=== PATIENT | female | born 1980 | race Caucasian/White ===

== ENCOUNTER 2017-02-27 13:42 | Emergency (ER) | payer OTHER ==
[2017-02-27 15:18] LABS: ALT (SGPT) 16 U/L (8-55); AST (SGOT) 24 U/L (5-34); Alkaline Phosphatase 35 U/L (40-150); Anion Gap 12 mmol/L (10-20); BUN (Urea Nitrogen) 12 mg/dL (7.0-18.7); Bilirubin, Total 0.6 mg/dL (0.2-1.2); Calc. Creatinine Clearance 0 mL/min (70-130); Carbon Dioxide 28 mmol/L (22-29); Chloride 102 mmol/L (98-107); Estimated GFR-MDRD 87; Globulin 3.5 g/dL (2.4-3.5); Lipase 29 U/L (8-78); Protein, Total 7.5 g/dL (6.0-8.3)
[2017-02-27] MEDS ORDERED: Fentanyl 100 MCG/2 ML VIAL ONE (15:28)
[2017-02-27 15:43] LABS: Bilirubin Negative (Negative); Blood, Urine Negative (Negative); Glucose, Urine (Dipstick) Negative (Negative); Ketone, Urine Negative (Negative); Nitrite Negative (Negative); Protein, Urine (Dipstick) Negative (Neg-Trace); Urobilinogen 0.2 mg/dL (0.2-1.0)
[2017-02-27] MEDS ORDERED: Ketorolac Tromethamine 30 MG/ML VIAL ONE ×2 (15:50→15:51)
--- NOTE | 2017-02-27 16:18 | CT ---
CT OF THE ABDOMEN AND PELVIS WITHOUT CONTRAST: Date: 02/27/17 COMPARISON: None. HISTORY: Abdominal lump and pain in left side of abdomen. TECHNIQUE: Multiple contiguous axial images were obtained in a CT of the abdomen and pelvis without contrast. C oronal reformats were performed. FINDINGS: There is a small fascial defect measuring 1.9 cm in size just lateral to the left rectus abdominus m uscle in the left lower quadrant of the abdomen. This represents a Spigelian hernia, This hernia con tains small bowel. The proximal small bowel entering this hernia is mildly distended, measuring up t o 2.7 cm in size. The small bowel exiting this hernia is decompressed. The colon contains a small am ount of stool, but is predominantly decompressed. No free air, free fluid, or stranding changes are seen in the abdomen or pelvis. The liver, gallbladder, kidneys, adrenal glands, spleen, and pancreas are unremarkable, although mica luation is limited on this noncontrast examination. No abdominal or pelvic lymphadenopathy seen. The visualized inferior thorax and osseous structures a re unremarkable. IMPRESSION: Left Spigelian hernia containing small bowel. A partial small bowel obstruction may be present secon moe to this hernia. POS: [facility]
== END 2017-02-27 18:46 | disposition home or self-care (01) ==
LOC: ERS 13:42
DX: K43.9 Ventral hernia without obstruction or gangrene (principal); E03.9 Hypothyroidism, unspecified; Z79.899 Other long term (current) drug therapy
CPT/HCPCS: 74176; 80053; 81003; 81025; 82378; 83690; 96361; 96374; 96375; J1885; J3010

== ENCOUNTER 2017-03-05 09:46 | Outpatient (CLI) | payer OTHER | END 2017-03-05 09:47 | disposition home or self-care (01) | LOC: LABBT 09:46 | PROVIDERS: ATTEND Specialist | DX: Z01.818 Encounter for other preprocedural examination (principal); K43.6 Other and unspecified ventral hernia with obstruction, without gangrene | CPT/HCPCS: 93005; 93010 ==

== ENCOUNTER 2017-03-09 13:03 | Day surgery (SDC) | payer OTHER ==
[2017-03-05 10:08] VITALS: BMI 25.8
[2017-03-09] MEDS ORDERED: Ketorolac Tromethamine 30 MG/ML VIAL ONE ×2 (13:39→14:48)
[2017-03-09] MEDS ORDERED: CEFAZOLIN/Water 2 GM/20 ML SYRINGE ONE (13:41)
[2017-03-09 13:58] LABS: #Basophils 0.1 thou/uL (0.0-0.2); #Lymphocytes 2.5 thou/uL (1.20-3.40); #Monocytes 0.5 thou/uL (0.11-0.59); #Neutrophils 5.6 thou/uL (1.40-6.50); %Eosinophils 0.4 % (0.0-10.0); %Lymphocytes 28.5 % (21.0-51.0); %Monocytes 5.9 % (0.0-10.0); Hematocrit 41.2 % (36.0-47.0); Mean Platelet Volume 7.6 fL (7.4-10.4); Red Blood Cell (RBC) Count 4.37 mill/uL (4.20-5.40); White Blood Cell (WBC) Count 8.8 thou/uL (4.8-10.8)
[2017-03-09] MEDS ORDERED: Lidocaine 2% w/Epinephrine 1:200K 20 ML VIAL ONE (14:17)
[2017-03-09] MEDS ORDERED: Fentanyl 100 MCG/2 ML VIAL ONE ×3 (14:21→17:30)
[2017-03-09] MEDS ORDERED: Midazolam HCl 2 mg/2 ml Vial ONE (14:21)
[2017-03-09] MEDS ORDERED: Glycopyrrolate 0.2 MG/ML 5 ML SYRINGE ONE (14:48)
[2017-03-09] MEDS ORDERED: Propofol 200 MG/20 ML VIAL ONE (14:48)
[2017-03-09] MEDS ORDERED: Lidocaine 2% PF 10 ML AMP (For Epidural Use) ONE (14:48)
[2017-03-09] MEDS ORDERED: Meperidine HCl/PF 25 MG/ML VIAL ONE (17:02)
[2017-03-09] MEDS ORDERED: Ondansetron HCl/PF 4 MG/2 ML Vial ONE (17:30)
[2017-03-09] MEDS ORDERED: HYDROcodone/Acetaminophen 5/325 mg Tablet ONE (18:55)
--- NOTE | 2017-03-10 14:19 | OP ---
DATE OF OPERATION: 03/09/2017 PREOPERATIVE DIAGNOSIS: Left spigelian ventral hernia. POSTOPERATIVE DIAGNOSIS: Left spigelian ventral hernia. OPERATION PERFORMED: Laparoscopic repair of left-sided spigelian hernia. SURGEON: Richard Salinas M.D. ANESTHESIA: General endotracheal. INDICATIONS: The patient is a 36-year-old white female. She had presented to the emergency room wi th evidence of a bowel obstruction and an obstructing hernia in her left abdominal wall. The anatom y such as this appeared to be a spigelian hernia. She is taken to the operating room at this time f or laparoscopic repair of this hernia. DESCRIPTION OF OPERATION: Informed consent was obtained. The patient was taken to the operating ro om where general endotracheal anesthesia was obtained with the patient in supine position. Abdomen was prepped with ChloraPrep and draped in sterile fashion. Local anesthetic was infiltrated and 5-m m right lateral abdominal incision was created through which a Veress needle was passed into the per itoneal cavity and pneumoperitoneum established using carbon dioxide up to a pressure of 15 mmHg. A 5-mm trocar port was passed through this same incision. Laparoscopic camera was passed through thi s port. Under direct vision, 2 additional ports were placed including a 5-mm right lower quadrant p ort and a 12-mm right upper quadrant port. Attention was turned to the left abdomen. The side of the hernia was easily visualized. The defect appeared to be about 1.5 cm in diameter. I incised the peritoneum several centimeters medial to th is and carried the preperitoneal dissection laterally, clearing the muscular fascia. Several centim eters superior inferior and dissected the peritoneum out of the hernia sac. The dissection was then carried for a few centimeters lateral as well. The defect was closed with two interrupted sutures of 0 Ethibond that were placed percutaneously using a GraNee needle. One of these sutures was place d vertically and the other transversely. This afforded excellent coverage of the defect. I then ob tained a 6.4 cm Ventralex mesh patch. The tails from this patch were trimmed away and the patch was tagged with four quadrant sutures of 0 Ethibond at appropriate location. The patch was passed into the abdominal cavity and these four sutures were each withdrawn through the anterior abdominal wall at appropriate intervals around the hernia defect. This afforded excellent coverage over the herni a. These four were then secured in the transfascial method through the percutaneous openings. I th en closed the peritoneal flap that I created back over the mesh patch to further help hold it in libertad ce. The fascial defect at the 12-mm port site was closed with 0 Vicryl suture using a GraNee needle . All ports and instruments were removed under direct vision. Pneumoperitoneum was carefully evacu ated. A 0.25% Marcaine with epinephrine was infiltrated in each port site. Skin edges approximated with 4-0 Monocryl subcuticular suture and Dermabond was placed externally. There were no complicat ions. The patient tolerated the procedure well and was taken to recovery room in stable condition.
== END 2017-03-09 19:25 | disposition home or self-care (01) ==
LOC: SDC 13:03
PROVIDERS: ATTEND Specialist
PROC: 0WUF4JZ Supplement Abdominal Wall with Synthetic Substitute, Percutaneous Endoscopic Approach (ICD-10-PCS; principal; 2017-03-09)
DX: K43.6 Other and unspecified ventral hernia with obstruction, without gangrene (principal); E06.3 Autoimmune thyroiditis; E03.9 Hypothyroidism, unspecified; Z79.899 Other long term (current) drug therapy; Z88.1 Allergy status to other antibiotic agents; Z88.8 Allergy status to other drugs, medicaments and biological substances; Z98.890 Other specified postprocedural states
CPT/HCPCS: 36415; 85025; 96374; J0131; J1885; J2001; J2175; J2250; J2405; J2704; J3010